=== PATIENT | male | born 1975 | race Native Hawaiian/Other Pacific Islander ===

== ENCOUNTER 2019-02-19 23:04 | Emergency (ER) | payer OTHER ==
[~2019-02-19] VITALS: Ht 182.9 cm; Wt 127.9 kg
[2019-02-19] MEDS ORDERED: ASPIRIN 81 LOW81 MG PO (23:20)
[2019-02-20 00:18] LABS: PLATELET COUNT 228 K/uL (142-355)
[2019-02-20 01:40] VITALS: BP 133/68; TEMP 98
== END 2019-02-20 01:47 | disposition home or self-care (01) ==
LOC: ED 23:04
PROVIDERS: Internal Medicine
DX: E86.0 Dehydration (principal); K52.9 Noninfective gastroenteritis and colitis, unspecified; R11.2 Nausea with vomiting, unspecified; R19.7 Diarrhea, unspecified
CPT/HCPCS: 36415; 80053; 81000; 82150; 83690; 85027; 96360; 96375; 99284; J2270; J2405

== ENCOUNTER 2020-04-05 18:56 | Emergency (ER) | payer OTHER ==
[~2020-04-05] VITALS: Ht 185.4 cm; Wt 128.4 kg
[~2020-04-05 18:56] MED LIST: ASPIRIN 81 LOW81 MG PO
[2020-04-05 22:08] VITALS: BP 127/81; TEMP 98.9
== END 2020-04-05 22:08 | disposition home or self-care (01) ==
LOC: ED 18:56
PROC: 2W3RX1Z Immobilization of Left Lower Leg using Splint (ICD-10-PCS; principal; 2020-04-05)
DX: S93.492A Sprain of other ligament of left ankle, initial encounter (principal); W17.2XXA Fall into hole, initial encounter; Y92.89 Other specified places as the place of occurrence of the external cause
CPT/HCPCS: 96372; 99283; J1885

== ENCOUNTER 2023-02-12 08:48 | Outpatient (CLI) | payer OTHER | END 2023-02-12 20:52 | disposition home or self-care (01) | LOC: US 08:48 → RESP 08:48 → US 09:00 | PROVIDERS: ATTEND Nurse Practitioner Family | DX: R00.2 Palpitations (principal) | CPT/HCPCS: 93005; 93225 ==